=== PATIENT | female | born 1980 | race Caucasian/White ===

== ENCOUNTER 2019-11-01 18:51 | Emergency (ER) | payer BC, SELFPAY ==
[2019-11-01 18:53] VITALS: BP 130/90; PULSE 106; RESP 16; TEMP 36.6; O2SAT 100; BMI 22.3
[2019-11-01 18:57] VITALS: O2SAT 100
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
[2019-11-01 21:02] VITALS: PULSE 88; RESP 16; O2SAT 98
== END 2019-11-01 21:04 | disposition home or self-care (01) ==
PROVIDERS: Emergency Provider Emergency Medicine
DX: S16.1XXA Strain of muscle, fascia and tendon at neck level, initial encounter (principal); S80.01XA Contusion of right knee, initial encounter; V49.40XA Driver injured in collision with unspecified motor vehicles in traffic accident, initial encounter; Y93.89 Activity, other specified
CPT/HCPCS: 70450; 72040; 73562; 99285